=== PATIENT | male | born 1970 | race Caucasian/White ===

== ENCOUNTER 2023-06-24 14:15 | Emergency (ER) | payer OTHER ==
[~2023-06-24] VITALS: Ht 167.6 cm; Wt 85.8 kg
[2023-06-24 14:31] VITALS: BP 119/79; PULSE 68; RESP 20; TEMP 98.2; O2SAT 98
[2023-06-24] MEDS ORDERED: KETOROLAC 60 MG/2 ML VIAL IM ONE (15:20)
[2023-06-24] MEDS ORDERED: IBUP-2213 PO (15:26)
[2023-06-24] MEDS ORDERED: ACET-503 PO (15:26)
[2023-06-24] MEDS ORDERED: ONDA8TAB87 PO (15:26)
[2023-06-24 15:41] VITALS: BP 121/80; PULSE 72; RESP 14; TEMP 98.2; O2SAT 98
== END 2023-06-24 15:41 | disposition home or self-care (01) ==
LOC: MED 14:15
DX: M54.50 Low back pain, unspecified (principal); Z79.899 Other long term (current) drug therapy
CPT/HCPCS: 96372; 99283